=== PATIENT | female | born 1955 ===

== ENCOUNTER 2024-06-09 10:16 | Outpatient (CLI) | payer OTHER | END 2024-06-09 14:49 | disposition home or self-care (01) | LOC: MAMO-SONO 10:16 | DX: Z12.31 Encounter for screening mammogram for malignant neoplasm of breast (principal); M47.26 Other spondylosis with radiculopathy, lumbar region ==

== ENCOUNTER 2024-07-26 13:57 | Outpatient (CLI) | payer OTHER | END 2024-07-26 14:06 | disposition home or self-care (01) | LOC: SONOGRAMA 13:57 | PROVIDERS: ATTEND General Practice | DX: N60.29 Fibroadenosis of unspecified breast (principal); Z12.31 Encounter for screening mammogram for malignant neoplasm of breast ==